=== PATIENT | male | born 1995 | race Caucasian/White ===

== ENCOUNTER 2018-07-15 03:01 | Emergency (ER) | payer OTHER ==
[~2018-07-15] VITALS: Ht 177.8 cm; Wt 56.7 kg
[2018-07-15] MEDS ORDERED: GUAIFENESIN/CODEINE 5 ML LIQUID UDC ONE ×2 (03:43→03:45)
[2018-07-15] MEDS ORDERED: GUAIFENESIN/CODEINE 5 ML LIQUID UDC PO ONE (03:45)
--- NOTE | 2018-07-15 04:20 | NUR ---
Patient discharged to home in stable conditon with girlfriend taking patient home. Written and verbal after care instructions given. Patient verbalizes understanding of instructions. Walked out of ER with no distress noted
[2018-07-15 04:31] VITALS: BP 110/66
== END 2018-07-15 04:33 | disposition home or self-care (01) ==
LOC: ER 03:05
DX: R05 Cough (principal); F17.290 Nicotine dependence, other tobacco product, uncomplicated; Z71.6 Tobacco abuse counseling
CPT/HCPCS: 71045; A4663